=== PATIENT | male | born 1985 | race Caucasian/White ===

== ENCOUNTER 2017-03-09 02:33 | Emergency (ER) | payer BC ==
--- NOTE | 2017-03-09 02:58 | EKG ---
[address] [address] Measurements Intervals [place] Rate: 85 P: 45 NV: 137 QRS: 35 QRSD: 109 T: 38 QT: 359 QTc: 401 Interpretive Statements SINUS RHYTHM POSSIBLE INFERIOR MYOCARDIAL INFARCTION [40+ ms Q WAVE AND/OR ST/T ABNORMALITY IN II/aVF], PROBABLY OLD (?nubbin R in III and borderline duration Q in aVF) INTERPRETATION BASED ON A DEFAULT AGE OF 40 YEARS No previous ECG available for comparison Electronically Signed On 03-09-17 14:55:45 MDT by Ajay Pinedo MD [email or web address]
[2017-03-09] MEDS: ASPIRIN 81 MG (BABY) CHEWABLE TABLET PO ONE (03:00)
[2017-03-09 03:01] LABS: HEMATOCRIT 44.8 % (42.0-52.0); HEMOGLOBIN 16.8 g/dL (14.0-18.0); MEAN CORPUSCULAR HGB CONC 37.5 g/dL (33-37); MEAN PLATELET VOLUME 9.6 FL (7.4-12.2)
[2017-03-09 03:05] VITALS: RESP 22; TEMP 97.6
[2017-03-09 03:06] LABS: BASOPHILS # (AUTO) 0.08 10*3/UL; BASOPHILS % (AUTO) 0.6 % (0-1); EOSINOPHILS # (AUTO) 0.32 10*3/UL; EOSINOPHILS % (AUTO) 2.3 % (0-8); LYMPHOCYTES # (AUTO) 4.98 10*3/uL; MEAN CORPUSCULAR HEMOGLOBIN 30.7 PG (27-31); MEAN CORPUSCULAR VOLUME 81.8 FL (80-90); MONOCYTES # (AUTO) 1.72 10*3/UL (0.3-0.8); MONOCYTES % (AUTO) 12.2 % (5-15); NEUTROPHILS # (AUTO) 6.96 10*3/UL; NEUTROPHILS % (AUTO) 49.4 % (50-80); RED BLOOD COUNT 5.48 10^6/uL (4.70-6.10)
[2017-03-09] MEDS: NORMAL SALINE 10 ML SYRINGE FLUSH IVP PRN (03:06)
[2017-03-09 03:08] LABS: BLOOD UREA NITROGEN 17 mg/dL (7-22); EST GLOMERULAR FILTRATION > 60 (>60 ml/min/1.73m(2)); SERUM ALBUMIN 4.5 g/dL (3.5-4.8)
[2017-03-09 03:21] LABS: PLATELET MORPHOLOGY COMMENT NORMAL MORPHOLOGY (NORM); RBC MORPHOLOGY COMMENT NORMAL MORPHOLOGY (NORM); WBC MORPHOLOGY COMMENT NORMAL MORPHOLOGY (NORM)
[2017-03-09 03:22] LABS: CREATINE KINASE MB 0.27 NG/ML (0.00-5.00); TROPONIN I < 0.012 ng/mL (< 0.040)
[2017-03-09 03:55] LABS: AMPHETAMINE SCREEN NEGATIVE (NEG); CANNABINOID SCREEN,URINE NEGATIVE (NEG); COCAINE SCREEN NEGATIVE (NEG); METHADONE URINE SCREEN NEGATIVE (NEG); METHAMPHETAMINES SCREEN,URINE NEGATIVE (NEG); OPIATE SCREEN,URINE NEGATIVE (NEG); URINE SAMPLE TYPE VOIDED SPECIMEN; URINE SPECIFIC GRAVITY - MAN 1.028
--- NOTE | 2017-03-09 06:30 | PDOC ---
Palpitations HPI - General Chief Complaint: Chest Pain Stated Complaint: PALPITATIONS WITH CHEST PAIN Date Seen by Provider: 03/09/17 Time Seen by Provider: 02:38 Source: POSITIVE: Patient, Spouse Exam Limitations: POSITIVE: No limitations Nurse's Notes Reviewed & Considered: Yes Nurse's Notes Reviewed & Considered: Yes - History of Present Illness Initial Comments: The patient is a 32-year-old male. 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 He states he had the sensation of "feeling tingly all over, like I'm having a peña." He also felt like "my heart was beating forcefully and rapidly". Patient was watching television at the time and it just gone to bed, but had not gone to sleep. Patient has a history of Crohn's disease for which she's had a small bowel resection. He takes Humira and methotrexate and vitamin B12 injections for this problem. He smokes a half a pack of cigarettes per day. He states he has a history of Crohn's disease for which she has had a previous bowel resection. He takes Humira, methotrexate and vitamin B12 for this problem. He has no known cardiopulmonary problems. 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 Body Location Affected: REPORTS: Chest, Other (As above) Timing: REPORTS: Abrupt Duration: 1-3 hours Severity: Moderate Quality: REPORTS: Other (Chest sensation) Gone now, lasted (minutes):: 10 Context: REPORTS: Other (As above). DENIES: Onset w/ Emotional Upset, Onset w/ Sleep, Hx of Caffeine Use, Hx of Decongestant Use, Hx of Cocaine Abuse, Hx of Amphetamine Abuse, Hx of Arrhythmia, Hx of VT, Hx of SVT, Hx of Atrial Fibrillation, Hx of WPW Associated Symptoms: REPORTS: Chest Discomfort, Anxiety, Tingling in Hands, Tingling in Face. DENIES: Fever, Chills, Sweating, Mid-Chest Pain, Chest Pain, Precordial Chest Pain, Neck Pain, Back Pain, Headache, Hurts to Breathe, Shortness of Breath, Light-Headedness, Muscle Spasms in Hands, Muscle Spasms in Feet, Other Modifying Factors: improves with: None Reported Similar Symptoms Previously: No Recently seen/treated/hospitalized: No Any Prior Injuries Related to Current Complaint?: No - Patient Home Medications Home Medications: Home Medications Adalimumab [Humira] 40 mg SUBCUT every 2 weeks ml 06/02/16 Methotrexate Sodium [Methotrexate] 2.5 mg PO DAILY 03/09/17 - Patient Allergies Allergies/Adverse Reactions: Allergies Allergy/AdvReac Type Severity Reaction Status Date / Time No Known Drug Allergies Allergy NOT Verified 03/09/17 02:46 APPLICABLE Past Medical History - heen HEENT History: Denies History Cardiovascular History: Denies History Respiratory History: Denies History Gastrointestinal History: Crohn's, Other (please comment) Additional Gastrointestinal History: bowsel resection due to crohns Genitourinary History: Denies History Endocrine History: Denies History Musculoskeletal History: Denies History Prosthesis or Implant: No Neurological History: Denies History Blood Disorders: Denies History Psychiatric History: Denies History Cancer History: Skin In Past Year Been Physically Harmed or Verbally Threatened: No History of MDRO: No Tobacco Use: Current Every Day Smoker Alcohol Use: None Substance Use Type: None Previous Surgical History: Yes Type / Date of Surgery: bowel resection. skin cancer removal Significant Family History: No pertinent family hx Past Medical History Reviewed: Reviewed - No Changes ROS - Limitations ROS Limitations: No Limitations Constitution: REPORTS: Denies Symptoms Cardiovascular: REPORTS: Heart Palpitations Respiratory: REPORTS: Denies Resp Symptoms Neurological: REPORTS: Denies Neuro Symptoms Gastrointestinal: REPORTS: Denies GI Symptoms Endocrine: REPORTS: Denies Symptoms Musculoskeletal: REPORTS: Denies MS Symptoms Genitourinary: REPORTS: Denies Symptoms Eyes: REPORTS: Denies Symptoms ENT: REPORTS: Denies Symptoms Skin: REPORTS: Denies Skin Symptoms Lympathic: REPORTS: Denies Lympathic Symptoms Immunologic: POSITIVE: Denies Symptoms Psychiatric: POSITIVE: Anxiety Palpitations Exam - General Appearance General Appearance: REPORTS: Alert, Cooperative, No Acute Distress, No Evidence of Trauma - HEENT HEENT: POSITIVE: Head Inspection Nml, Eyes Inspection Nml, Ears Inspection Nml, Nose Inspection Nml, Oral/Dental Inspect. Nml, Pharynx Inspect. Nml, PERRL, EOMI - Neck Neck: POSITIVE: Normal Inspection - Respiratory Respiratory: REPORTS: No Respiratory Distress, Breath Sounds Normal, Chest Non- Tender - Cardiovascular Cardiovascular: POSITIVE: Regular Rate and Rhythm, Normal PMI, No JVD, No Murmur , No Gallop, No Friction Rub, Tachycardia (mild sinus tachycardia of around 92) Peripheral Pulses: Radial (R): 2+, Radial (L): 2+ - Abdomen Abdomen: Soft: (All Quadrants), Normal Bowel Sounds: (All Quadrants), Denies Tenderness: (All Quadrants), No Splenomegaly: (All Quadrants), No Hepatomegaly: (All Quadrants), No Guarding: (All Quadrants), No Rebound: (All Quadrants), No Palpable Pulse: (All Quadrants), No Palpabale Mass: (All Quadrants), No Distention: (All Quadrants), No Rigidity: (All Quadrants) - Back Back: POSITIVE: Normal Inspection - Skin Skin: REPORTS: Intact, Normal For Race, Warm, Dry, No Rash - Extremities Extremity: Non-Tender: (All Extremities), Normal ROM: (All Extremities), Normal Inspection: (All Extremities) - Neurological / Psychological Neurological: POSITIVE: Oriented X3, 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, Motor Normal, Sensation Normal, 5, 6 Palpitations Progress - Results Reviewed by me Xrays/CTs/US Reviewed by me: Yes Discussed with Radiologist: No Radiology Findings: Portable chest x-ray normal Lab Results Reviewed: Yes (all normal except white blood cell count of 14,000) Lab Results:: Laboratory Results 03/09/17 03/09/17 Range/Units 02:43 03:45 WBC 14.09 H (4.8-10.8) 10^3/uL RBC 5.48 (4.70-6.10) 10^6/uL Hgb 16.8 (14.0-18.0) g/dL Hct 44.8 (42.0-52.0) % MCV 81.8 (80-90) FL MCH 30.7 (27-31) PG MCHC 37.5 H (33-37) g/dL RDW Std Deviation 38.3 L (39-50) fL RDW Coeff of Evelyn 13.0 (11.5-14.5) % Plt Count 390 H (140-350) 10*3/uL MPV 9.6 (7.4-12.2) FL Immature Gran % (Auto) 0.2 (0-5) % Neut % (Auto) 49.4 L (50-80) % Lymph % (Auto) 35.3 (10-50) % [place] % (Auto) 12.2 (5-15) % Eos % (Auto) 2.3 (0-8) % Baso % (Auto) 0.6 (0-1) % Immature Gran # (Auto) 0.03 10*3/UL Neut # (Auto) 6.96 10*3/UL Lymph # (Auto) 4.98 10*3/uL [place] # (Auto) 1.72 H (0.3-0.8) 10*3/UL Eos # (Auto) 0.32 10*3/UL Baso # (Auto) 0.08 10*3/UL WBC Morphology Comment Normal morphology (NORM) Plt Morphology Comment Normal morphology (NORM) RBC Morph Comment Normal morphology (NORM) Sodium 142 (135-145) meq/L Potassium 3.9 (3.8-5.2) meq/L Chloride 104 (98-112) meq/L Carbon Dioxide 25 (23-33) meq/L Anion Gap 13 (5-20) BUN 17 (7-22) mg/dL Creatinine 1.0 (0.70-1.50) mg/dL Estimated GFR > 60 (>60 ml/min/1.73m(2)) BUN/Creatinine Ratio 17.00 (6-20) Glucose 106 (78-110) mg/dL Calculated Osmolality 295.0 H (267-292) mOsm/kg Calcium 10.0 (8.7-10.7) mg/dL Total Bilirubin 2.1 H (0.3-1.2) mg/dL AST 34 (21-57) IU/L ALT 78 H (21-72) IU/L Alkaline Phosphatase 85 (38-126) IU/L CK-MB (CK-2) 0.27 (0.00-5.00) NG/ML Troponin I < 0.012 (< 0.040) ng/mL Total Protein 8.0 (6.1-8.0) g/dL Albumin 4.5 (3.5-4.8) g/dL Globulin 3.4 (2.50-4.10) g/dL Albumin/Globulin Ratio 1.30 (1.3-2.0) mg/g Ur Collection Type Voided specimen U Specif Grav (Refrac) 1.028 Urine Opiates Screen Negative (NEG) Ur Buprenorphine Negative (NEG) Ur Oxycodone Screen Negative (NEG) Urine Methadone Screen Negative (NEG) Ur Propoxyphene Screen Negative (NEG) Barbiturate Screen Negative (NEG) U Tricyclic Antidepress Negative (NEG) Phencyclidine Screen Negative (NEG) Amphetamines Screen Negative (NEG) U Methamphetamines Scrn Negative (NEG) Benzodiazepines Screen Negative (NEG) Cocaine Screen Negative (NEG) U Marijuana (THC) Screen Negative (NEG) EKG Interpreted/Reviewed By Me:: Yes (normal) EKG Interpretation:: POSITIVE: Normal Sinus Rhythm, Normal Rate, Normal Intervals, Normal [place], Normal QRS, Normal ST/T - Patient's Progress Pain Medication Addressed: POSITIVE: Not Applicable School/Work Release Addressed: POSITIVE: Not Applicable Re-examine Time: 04:10 Re-Examine Comment: Patient rested comfortably throughout his stay in the emergency room. He seemed reassured that I saw no evidence of any acute cardiopulmonary problems ongoing. I did advise patient that I thought a lot of his symptoms could be attributed to anxiety secondary to his recent life changes. Status: POSITIVE: Improved, Re-Examined Quality Measure Initiative: CP/AMI: POSITIVE: EKG, ASA - Consult Counseled: POSITIVE: Patient, Family, RE: Lab Results, RE: Radiology Results, RE : DX, RE: Need for F/U Patient Care Time - Estimated PCT Patient Care Time (In Minutes): 45 Vital Signs - Recent Vital Signs Vital Signs: Vital Signs (Last 8 hours) Temp Pulse Pulse Resp BP Pulse Ox 03/09/17 03:05 85 03/09/17 02:35 97.6 F 92 22 131/90 97 - VS Reviewed Vital Signs Reviewed: Yes Discharge Clinical Impression: Palpitations Discharge Disposition: Discharged to Home Condition: Good Patient Instructions Given at Discharge: Palpitations (ED), Anxiety (ED) Additional Instructions: I believe you're having some heart palpitations, which is he sense of your heart beating rapidly or forcefully. This is very frequently asymptomatic of anxiety. Everything else checks out fine. I believe you're going to be fine. Rest. He'll recent life changes with her employment an impending move may be playing a role. Return as necessary. Follow Up With: HEBER LITTLE [Primary Care Provider] - (Instructions as above. Follow-up with her primary care provider. Return as necessary.)
--- NOTE | 2017-03-09 09:27 | DI ---
[facility] CHEST X-RAY, 03/09/2017 1:55 AM : Clinical History: Chest pain. Previous Exam: None at this facility. There is no acute soft tissue or bony abnormality. Heart size is normal. Lungs are clear. Mediastinal structures are normal. There are no pulmonary nodules. Reading: Normal chest x-ray.
== END 2017-03-09 04:15 | disposition home or self-care (01) ==
LOC: ER 02:33
DX: R00.2 Palpitations (principal); F41.9 Anxiety disorder, unspecified; R07.9 Chest pain, unspecified; K50.90 Crohn's disease, unspecified, without complications
CPT/HCPCS: 71010; 80053; 80305; 82553; 84484; 85025; 93005; 93010; 99284